=== PATIENT | female | born 1990 | race Asian ===

== ENCOUNTER 2023-09-14 08:02 | Outpatient (CLI) | payer BC | END 2023-09-14 08:03 | disposition home or self-care (01) | LOC: CSHRAD 08:02 | PROVIDERS: ATTEND Internal Medicine Gastroenterology | DX: R10.13 Epigastric pain (principal); B96.81 Helicobacter pylori [H. pylori] as the cause of diseases classified elsewhere; K25.9 Gastric ulcer, unspecified as acute or chronic, without hemorrhage or perforation; K31.89 Other diseases of stomach and duodenum; K21.9 Gastro-esophageal reflux disease without esophagitis | CPT/HCPCS: 74246 ==

== ENCOUNTER 2023-09-26 07:35 | Outpatient (CLI) | payer BC ==
[2023-09-26] MEDS ORDERED: Iopamidol 300 61% 100 ML VIAL FS ONE (13:53)
== END 2023-09-26 07:36 | disposition home or self-care (01) ==
LOC: CSHCT 07:35
PROVIDERS: ATTEND Internal Medicine Gastroenterology
DX: K25.9 Gastric ulcer, unspecified as acute or chronic, without hemorrhage or perforation (principal); R14.0 Abdominal distension (gaseous); N85.2 Hypertrophy of uterus
CPT/HCPCS: 74177; Q9967